=== PATIENT | male | born 1960 | race Caucasian/White ===

== ENCOUNTER 2017-09-21 00:47 | Observation (INO) | payer OTHER ==
[2017-09-21] MEDS ORDERED: Nitroglycerin 2% Ointment 1 INCH/1 GM Packet ONE (01:07)
[2017-09-21 01:32] LABS: #Basophils 0.1 thou/uL (0.0-0.2); #Eosinphils 0.1 thou/uL (0.0-0.7); #Lymphocytes 1.2 thou/uL (1.20-3.40); #Monocytes 0.5 thou/uL (0.11-0.59); #Neutrophils 3.8 thou/uL (1.40-6.50); %Basophils 1.1 % (0.0-1.0); %Eosinophils 1.8 % (0.0-10.0); %Lymphocytes 21.5 % (21.0-51.0); %Monocytes 8.3 % (0.0-10.0); %Neutrophils 67.3 % (42.0-75.0); Hemoglobin 14.5 g/dL (14.0-18.0); Mean Corpuscular HGB CONC 34.1 g/dL (32.0-36.0); Mean Corpuscular Hemoglobin 32.5 pg (27.0-31.0); Mean Corpuscular Volume 95.4 fL (78.0-98.0); Mean Platelet Volume 10.7 fL (7.4-10.4); Platelet Count 103 thou/uL (130-400); RBC Distribution Width 12.4 % (11.5-14.5); Red Blood Cell (RBC) Count 4.44 mill/uL (4.70-6.10); White Blood Cell (WBC) Count 5.7 thou/uL (4.8-10.8)
[2017-09-21 01:39] LABS: ALT (SGPT) 71 U/L (8-55); AST (SGOT) 71 U/L (5-34); Albumin 3.7 g/dL (3.5-5.0); Alkaline Phosphatase 150 U/L (40-150); Anion Gap 13 mmol/L (10-20); BUN (Urea Nitrogen) 9 mg/dL (8.4-25.7); Bilirubin, Total 0.5 mg/dL (0.2-1.2); Calc. Creatinine Clearance 0 mL/min (70-130); Calcium 9.6 mg/dL (7.8-10.44); Carbon Dioxide 29 mmol/L (22-29); Chloride 102 mmol/L (98-107); Estimated GFR-MDRD Greater than 90; Globulin 3.2 g/dL (2.4-3.5); Glucose 141 mg/dL (70-105); Lipase 22 U/L (8-78); Potassium 4.6 mmol/L (3.5-5.1); Protein, Total 6.9 g/dL (6.0-8.3); Sodium 139 mmol/L (136-145)
[2017-09-21 01:41] LABS: CKMB 1.3 ng/mL (0-6.6); Troponin I 0.011 ng/mL (< 0.028)
[2017-09-21 04:53] LABS: CKMB 1.3 ng/mL (0-6.6); Troponin I 0.012 ng/mL (< 0.028)
[2017-09-21] MEDS ORDERED: Ketorolac Tromethamine 30 MG/ML VIAL IVP PRN (06:32)
[2017-09-21] MEDS ORDERED: Acetaminophen 325 MG TAB PO PRN (06:32)
[2017-09-21] MEDS ORDERED: HumaLOG 300 UNITS/3 ML VIAL SC PRN (07:17)
[2017-09-21] MEDS ORDERED: Dextrose 5% in Water 1,000 ML IV PRN (07:17)
[2017-09-21] MEDS ORDERED: Dextrose 50% Abboject 50 ML SYRINGE SLOW IVP PRN (07:17)
[2017-09-21 07:20] VITALS: BMI 35.0
--- NOTE | 2017-09-21 08:21 | RAD ---
PORTABLE CHEST: HISTORY: Intermittent chest pain x1 day. FINDINGS: Heart size appears slightly enlarged. Mediastinal structures are unremarkable. Lungs are clear of i nfiltrates. No signs of failure. IMPRESSION: Minimal cardiomegaly. POS: SHANIKAH
[2017-09-21 08:42] LABS: Troponin I 0.012 ng/mL (< 0.028)
[2017-09-21] MEDS ORDERED: Aspirin 325 MG TAB PO SCH (09:00)
--- NOTE | 2017-09-21 09:15 | HP ---
CHIEF COMPLAINT: Chest pain. HISTORY OF PRESENT ILLNESS: This is a 57-year-old male who presented to the emergency department wit h substernal chest pain. The patient is a [employer] inmate who has been receiving care at [facility]. The luiza ent has a history of coronary disease and just had multiple stents placed on 07/31/2017 at [facility]. The patient reported today around 1500 he started having chest pain that he describes as a pressure and some associated radiation down the left arm. He states it was constant and getting worse throughout the day. He had some associated nausea and dizziness. Denied any fevers, cough, shortness of breath , abdominal pain, vomiting or weakness. Pain was 6/10 at the time of the interview. He had received nitroglycerin and morphine en route which did not alleviate his pain. The patient was given nitro p aste in the emergency department and his pain persisted. He states that his pain was similar to, but not as severe as the pain he had previously prior to his stent placement. The patient had a negativ e initial evaluation in the emergency department. [facility] was contacted and stated the patient did not need to return there, but recommended the patient be admitted for rule out and medication adjustments . REVIEW OF SYSTEMS: Negative except for those things mentioned in the history of present illness thro [facility] a 10-system review. PAST MEDICAL HISTORY: Hepatitis C, diabetes and hypertension. PAST SURGICAL HISTORY: Coronary stents placed on 07/31/2017 at [facility]. He has had back surgery x2. FAMILY HISTORY: Coronary artery disease and IA in both his father and mother, both had early disease in their early 50s. ALLERGIES: IODINE. SOCIAL HISTORY: The patient has a long history of smoking and drinking, but quit 3 years ago. Denie s drugs. 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 CURRENT MEDICATIONS: Still being obtained. CODE STATUS: The patient is full code. PHYSICAL EXAMINATION: VITAL SIGNS: Pulse 57 beats per minute, respirations 16, afebrile. BP 113/63. GENERAL APPEARANCE: Age appropriate male in no distress. He is awake, alert, oriented, pleasant, co operative. HEENT: PERRL. NECK: Supple and symmetric without lymphadenopathy, JVD, or carotid bruits. CARDIOVASCULAR: Regular rate and rhythm without murmurs, gallops or rubs. LUNGS: Clear to auscultation bilaterally with good chest wall expansion and air exchange. ABDOMEN: Soft, nontender, nondistended, positive bowel sounds. No masses No organomegaly. SKIN: Warm, dry. Chest x-ray shows no acute distress. EKG shows no ischemic changes. LABORATORY DATA: White count 5.7, hemoglobin 14.5, platelets 103. Sodium 139, potassium 4.6, chlori de is 102, CO2 29, BUN 9, creatinine 0.81, glucose 141. LFTs normal. Troponin 0.011 and 0.012. Chest x-ray is clear except for some cardiomegaly. ASSESSMENT AND PLAN: 1. The patient has chest pain and the history of coronary disease with recent coronary stent placeme nt at [facility]. He has negative initial enzymes. He will be placed in observation on telemetry. Contin ue to monitor troponins. Consult Cardiology for medication management changes pending negative tropo rico results. 2. History of coronary disease. Defer to Cardiology. Continue with his usual medications. 3. Diabetes mellitus. Accu-Cheks, diabetic diet, sliding scale insulin as needed. 4. Hypertension. Continue usual home medications.
[2017-09-21 11:45] VITALS: BP 132/68; TEMP 97.8
--- NOTE | 2017-09-21 13:07 | DIS ---
DATE OF ADMISSION: 09/21/2017 DATE OF DISCHARGE: 09/21/2017 DISCHARGE DIAGNOSES: 1. Noncardiac chest pain. 2. Coronary artery disease. 3. Hepatitis C, chronic, treatment status unknown. 4. Diabetes mellitus type 2. 5. Essential hypertension. CONSULTATIONS: Cardiology, Dr. Sven Rajan. PROCEDURES: None. PRIMARY CARE PHYSICIAN: None. He is an inmate at the [employer] [place] [employer] [facility] [employer] and he ge ts most of his care at [facility]. The patient presented to the emergency department with substernal chest pain. He does have a history of coronary artery disease with multiple stents placed in July at [facility]. Around 1500 on the day of admission, he started having chest pain described as pressure, so he was br ought to the emergency department for evaluation. We were asked to admit him. HOSPITAL COURSE: The patient was seen and examined by Dr. New Valle. The patient was placed on observation. Serial cardiac biomarkers were obtained and Cardiology was consulted. No workup was or dered due to his recent stenting. His serial cardiac biomarkers remained negative. The patient was seen by Dr. Rajan, who recommended o nly the addition of Ranexa 500 b.i.d. and the patient was otherwise stable for discharge back to the [facility]. PHYSICAL EXAMINATION: The patient was seen and examined on the day of discharge. Discharge plan and disposition was discussed with the patient at the bedside. DISCHARGE MEDICATIONS: New medication, Ranexa 500 mg p.o. b.i.d. Prescription on paper provided. Medicines to continue, 1. Omeprazole 20 mg daily. 2. Nitrostat 0.4 mg sublingual as needed. 3. Metoprolol tartrate 100 mg p.o. b.i.d. 4. Metformin 500 mg p.o. b.i.d. 5. Zestril 10 mg daily. 6. Lactulose 30 mL p.o. b.i.d. 7. Isosorbide mononitrate 120 mg daily. 8. Glipizide 10 mg daily and 20 mg at bedtime. 9. Cymbalta 30 mg daily. 10. Plavix 75 mg daily. 11. Atorvastatin 80 mg p.o. at bedtime. 12. Aspirin 81 mg daily. 13. Norvasc 10 mg daily. 14. Tylenol 650 mg p.o. b.i.d. p.r.n. FOLLOWUP APPOINTMENTS: [facility] [place] [facility] and his spa attendant as pr eviously scheduled. DISCHARGE DIET: Heart healthy diabetic diet recommended. DISCHARGE CONDITION: Stable. DISPOSITION: The patient is being discharged back to [facility].
--- NOTE | 2017-09-21 13:54 | CON-2 ---
DATE OF CONSULTATION: 09/21/2017 REASON FOR CONSULTATION: Medical management of hurting angina. HISTORY OF PRESENT ILLNESS: This is a 57-year-old male from [facility], presenting for typical chest pain. The patient describes a substernal chest pain radiating to the left jaw and left arm associated with diaphoresis and shortness of breath. The patient has history of CAD status post 4 stents placed on 07/31/2017 at [facility] in [place]. The patient also noted a history of 1 prior stent in 2009. The patient began having pain yesterday afternoon that was transient. The pain eventually worsened later that evening, which prompted a visit to the ER. He denies any abdominal pain, vomiting, diarrhea, focal neuro deficits or weakness. The pain is reduced with nitroglycerin and morphine , but he still endorses a 4/10 pain while at rest. The patient endorses similar pain prior to DE, but this pain is not quite as intense. PAST MEDICAL HISTORY: 1. Coronary artery disease status post 5 total stents. 2. Diabetes mellitus type 2. 3. Hepatitis C. 4. Cirrhosis. 5. Hypertension. PAST SURGICAL HISTORY: Two unknown back surgeries. ALLERGIES: IODINE. SOCIAL HISTORY: Positive for very significant history of smoking and alcohol use. FAMILY HISTORY: Significant for CAD and DE in both his father and mother in approximately their 50s. REVIEW OF SYSTEMS: General: Denies fever or chills. ENT: Denies any congestion. Denies earache. Cardiovascular: Endorses chest pain. Denies palpitations. Pulmonary: Denies shortness of breath. Denies wheezing. Gastrointestinal: Denies nausea. Denies vomiting. Denies diarrhea. Skin: Denies lesions. Denies rashes. Neurologic: Denies weakness, tremors, seizures. Psychiatric: Denies anxiety. Denies depression. CURRENT MEDICATIONS: Amlodipine 10 mg p.o. daily, aspirin 81 mg p.o. daily, atorvastatin 80 mg p.o. at bedtime, Plavix 75 mg p.o. daily, Cymbalta 30 mg p.o. daily, glipizide 10 mg p.o. a.m. and 20 mg p.o. at bedtime, Imdur 120 mg p.o. daily, lactulose 30 mL p.o. b.i.d., lisinopril 10 mg p.o. daily, metformin 500 mg p.o. b.i.d. with meals, Lopressor 100 mg p.o. b.i.d., Nitrostat 0.4 mg p.o. sublingual q.5 minutes, omeprazole 20 mg p.o. daily. PHYSICAL EXAMINATION: VITAL SIGNS: Temperature 97.8, pulse 65, respirations 16, O2 sat 96% on room air, blood pressure 132/68. GENERAL: Alert and oriented x4, in no acute distress. HEENT: Pupils equally round and reactive to light and accommodation. Nasal mucosa within normal limits. Oral mucosa within normal limits. NECK: Supple with no lymphadenopathy. CARDIOVASCULAR: Regular rate and rhythm. No murmurs. No pain to palpation of the anterior chest wall. LUNGS: Clear to auscultation bilaterally. ABDOMEN: Soft, nontender, nondistended. Normal bowel sounds. SKIN: Warm and dry and intact. EXTREMITIES: Show no edema in bilateral lower extremities. IMAGING: Chest x-ray is negative for acute pathology. EKG is normal sinus rhythm with no ischemic changes. SIGNIFICANT LABORATORY DATA: On admission, hemoglobin 14.5, hematocrit 42.4, platelets 103,000. Sodium 139, potassium 4.6, chloride 102, carbon dioxide 29, BUN of 9, creatinine of 0.81, AST of 71, ALT of 71, alkaline phosphatase of 150. Troponins are negative x3. BNP of 232 and lipase 22. ASSESSMENT AND PLAN: Stable angina: The patient is being monitored on telemetry with no evidence of abnormal rhythms. Cardiac enzymes are negative with normal EKG showing no ischemic changes. The patient recently underwent cardiac catheterization with 4 stents placed less than 2 months ago. EKGs suggest this is not a stent thrombosis. The patient has significant risk factors for worsening CAD, including smoking history, drinking history and multiple comorbidities including diabetes and hypertension. The patient is already taking aspirin, Plavix, Lipitor, lisinopril, Lopressor and Imdur. The patient would benefit from addition of Ranexa at this time. No indication for further testing or catheterization. History and physical exam and evaluation discussed with Dr. Sven Rajan. EFRAIN
[2017-09-21] MEDS ORDERED: Nitroglycerin 2% Ointment 1 INCH/1 GM Packet TOP SCH (14:00)
--- NOTE | 2017-09-21 15:00 | ADD-CON ---
DATE OF CONSULTATION: 09/21/2017 CARDIOLOGY CONSULTATION INDICATION FOR CONSULTATION: A 57-year-old patient with history of known coronary artery disease, st atus post myocardial infarction, status post angioplasty and stent placement, who presented again wit h chest pain. We were asked to see him due to his history of coronary artery disease. HISTORY OF PRESENT ILLNESS: Please refer to the notes dictated by the Family Practice resident for t he complete history and physical. In short, this is an addendum. This is a 57-year-old gentleman wh o is incarcerated. He has had stent placements stemming back to 2009 where he underwent angioplasty and stent. It was several years ago, I am not quite sure if it is 2009 or not, but recently on 07/31 , he underwent repeat stent placement in [place], [place], uncertain as to which vessels were stented . He was then transferred back to [place], [place] on 08/07 where he spent about 4-5 days in intensiv e care unit and then was sent back to [place] and just recently in 09/06, he was back in [place] again and was noted to have increased cardiac enzymes and he was recatheterized. It was told that th ere was no further stent placement possible. His distal vessels were too small and had diffuse disea se, most likely due to his long history of diabetes and tobacco abuse. At this time. He again prese nted with chest discomfort, but enzymes are negative. EKG shows a sinus rhythm without any acute torsten nges and cardiac enzymes remained negative. At this time, based on his history and the fact that he just recently underwent cardiac catheterization and now without any EKG changes or cardiac enzymes in crease, it is most likely that he has continued to have anginal symptoms. We will need to control th alejandra medically. There is no indication that he needs to have a repeat cardiac catheterization perform ed. We will start him on Ranexa 500 mg b.i.d. and hopefully in the future, we will be able to increa se that up to 100 mg b.i.d. in order to control some of his ischemic symptoms and we will hopefully d ecrease some of his overall ischemia. At this time, he remains stable from a cardiac standpoint. He still continues to have some chest discomfort, which he describes as being 5/6, but no EKG changes a re noted. He has a normal EKG. As far as his past medical history, social history, family history, review of systems, allergies and medications, please refer to notes dictated by the resident. PHYSICAL EXAMINATION: GENERAL: Reveals a middle-aged gentleman who actually appears older than his stated age. VITAL SIGNS: Blood pressure is 109/59, heart rate is 63 and regular, respiratory rate is 20. He is afebrile. O2 saturations are 96%. HEENT: Shows the head to be normocephalic and atraumatic. Carotid pulses are present. I did not he ar any bruits. CHEST: Clear to auscultation. No rales, rhonchi or wheezing. CARDIOVASCULAR: Heart sounds are distant, but he has a normal S1, S2. I cannot hear an S3 nor an S4 nor any significant murmurs. ABDOMEN: Obese. EXTREMITIES: He is in handcuffs and also leg cuffs, but otherwise the extremities showed no clubbing or cyanosis. I cannot palpate popliteal or pedal pulses. Femoral pulses are difficult to palpate, but are present. I did not hear any bruits. NEUROLOGIC: He appears to be intact, but he cannot get out of the bed for further evaluation. IMPRESSION: 1. Severe coronary artery disease, which has been deemed inoperable and no further stents are possib le at this time either. We will continue medical management. We will resume his long-trending nitra zay as well as his other medications he was on prior to admission and also we will start him on new m edication in the form of Ranexa to see whether or not we can control some of his symptoms. I do not see an indication to proceed with a repeat stress test or further evaluation in this patient from a c ardiac standpoint at this time and if his lungs and blood pressure remain stable and EKG remains stab le, he can be discharged back to the facility. 2. Diabetes. This will be dealt with by the primary care service. 3. Status post angioplasty and stent placement. These do appear to be stable at this time. There a re no EKG changes or enzymes indicate otherwise. 4. History of hypercholesterolemia. He will continue on also his previous medications prior to admi ssion and as far as his diabetes will also be cared for by the primary care service. 5. History of tobacco abuse. He remains abstinent, but this also most likely has played a role in s ome of his severe coronary artery disease. I would also continue his aspirin and Plavix. Thank you very much for asking us to participate in the care of the patient, but at this time, no fur ther cardiac intervention or workup is indicated at this time, but we will try medical management in order to control his symptoms.
== END 2017-09-21 13:28 ==
LOC: ERS 00:47 → 2SW 06:21
PROVIDERS: ADMIT Internal Medicine; ATTEND Internal Medicine
DX: R07.89 Other chest pain (principal); I25.10 Atherosclerotic heart disease of native coronary artery without angina pectoris; E11.9 Type 2 diabetes mellitus without complications; I10 Essential (primary) hypertension; I25.2 Old myocardial infarction; B18.2 Chronic viral hepatitis C; Z95.5 Presence of coronary angioplasty implant and graft; Z87.891 Personal history of nicotine dependence; Z91.041 Radiographic dye allergy status; Z79.02 Long term (current) use of antithrombotics/antiplatelets; Z79.82 Long term (current) use of aspirin; Z79.84 Long term (current) use of oral hypoglycemic drugs; Z79.899 Other long term (current) drug therapy
CPT/HCPCS: 36415; 36416; 71045; 80053; 82553; 83690; 83880; 84484; 85025; 93005; G0378